=== PATIENT | male | born 1970 | race Caucasian/White ===

== ENCOUNTER 2016-10-26 10:53 | Outpatient (CLI) | payer OTHER | END 2016-10-26 10:54 | disposition home or self-care (01) | DX: G47.30 Sleep apnea, unspecified (principal); G47.10 Hypersomnia, unspecified; G47.8 Other sleep disorders ==

== ENCOUNTER 2016-11-06 12:30 | Outpatient (CLI) | payer OTHER | END 2016-11-06 12:31 | disposition home or self-care (01) | DX: N64.4 Mastodynia (principal) ==

== ENCOUNTER 2016-12-30 09:48 | Outpatient (CLI) | payer OTHER | END 2016-12-30 09:49 | disposition home or self-care (01) | DX: G47.33 Obstructive sleep apnea (adult) (pediatric) (principal) ==

== ENCOUNTER 2017-03-22 13:14 | Outpatient (CLI) | payer OTHER | END 2017-03-22 13:15 | disposition home or self-care (01) | LOC: SC 13:14 | PROVIDERS: ATTEND Nurse Practitioner Family | DX: G47.33 Obstructive sleep apnea (adult) (pediatric) (principal) | CPT/HCPCS: 99212; 99214 ==

== ENCOUNTER 2017-05-17 15:12 | Outpatient (CLI) | payer OTHER | END 2017-05-17 15:13 | disposition home or self-care (01) | LOC: SC 15:12 | PROVIDERS: ATTEND Nurse Practitioner Family | DX: G47.33 Obstructive sleep apnea (adult) (pediatric) (principal) | CPT/HCPCS: 99212; 99214 ==

== ENCOUNTER 2021-12-16 12:12 | Outpatient (CLI) | payer OTHER ==
--- NOTE | 2021-12-16 17:32 | CT Report ---
PROCEDURE: Low Dose Lung Cancer Screen INDICATIONS: CURRENT SMOKER TECHNIQUE: Noncontrast 1mm axial images were acquired from the pulmonary apices to the posterior costophrenic an gles. Axial 5 mm soft tissue kernel reconstructions were performed as well as 8 mm axial MIP and cor onal and sagittal 5 mm reformations. For radiation dose reduction, the following was used: automate d exposure control, adjustment of mA and/or kV according to patient size. COMPARISON: None. FINDINGS: Image quality: Excellent. Lungs and pleura: 3 mm nodule in the left lower lobe series 6 image 80. 6 mm nodule in the right low er lobe series 6 image 86 4 mm nodule left upper lobe series 6 image 50 No acute air space opacities. No pleural effusions or pneumothorax. Central and peripheral airways are patent and normal in boris ryan. Mediastinum: Heart size is normal. No pericardial effusion. No mediastinal adenopathy by size crit eria. Thoracic aorta and central pulmonary arteries are normal in size. Esophagus is normal in boris [place]yan. No hiatal hernia. The coronary arteries have atherosclerotic calcifications. Bones and chest wall: No suspicious bony lesions. No vertebral body compression fractures. No axil luis or supraclavicular adenopathy by size criteria. The thyroid is normal in size. Abdomen: Visualized upper abdominal solid organs and bowel loops appear normal in the absence of con trast. IMPRESSION: 3 mm left lower lobe nodule, 6 mm right lower lobe nodule, and 4 mm left upper lobe nodu le on baseline exam. LUNG-RADS 3: Probably benign; recommend 6 month follow-up CT. Reviewed by: Blayne Guerin on 12/16/2021 5:31 PM PDT Approved by: Blayne Guerin on 12/16/2021 5:31 PM PDT Station ID: [id number]
== END 2021-12-16 12:13 | disposition home or self-care (01) ==
LOC: DI 12:12
PROVIDERS: ATTEND Registered Nurse
DX: Z12.2 Encounter for screening for malignant neoplasm of respiratory organs (principal); F17.210 Nicotine dependence, cigarettes, uncomplicated; R91.8 Other nonspecific abnormal finding of lung field

== ENCOUNTER 2022-06-13 11:49 | Outpatient (CLI) | payer OTHER ==
--- NOTE | 2022-06-13 18:45 | CT Report ---
PROCEDURE: CHEST WO INDICATIONS: PULMONARY NODULE TECHNIQUE: Noncontrast 1mm axial images were acquired from the pulmonary apices to the posterior costophrenic an gles. Axial 5 mm soft tissue kernel reconstructions were performed as well as 8 mm axial MIP and cor onal and sagittal 5 mm reformations. For radiation dose reduction, the following was used: automate d exposure control, adjustment of mA and/or kV according to patient size. COMPARISON: 02/15/2022 FINDINGS: Image quality: Excellent. Lungs and pleura: Pulmonary nodules are seen: Left upper lobe, series 4 image 110 5 mm, stable Left lower lobe, series 4 image 160, 4 mm, stable Right lower lobe laterally, series 4 image 167, 6 mm, stable No acute air space opacities. No pleural effusions or pneumothorax. Central and peripheral airways are patent and normal in caliber. Mediastinum: Heart size is normal. No pericardial effusion. No mediastinal adenopathy by size crit eria. Thoracic aorta and central pulmonary arteries are normal in size. Esophagus is normal in [place]is ryan. No hiatal hernia. Bones and chest wall: No suspicious bony lesions. No vertebral body compression fractures. Age-appr opriate degenerative changes are seen. There is accentuated thoracic kyphosis. No axillary or supr aclavicular adenopathy by size criteria. The thyroid is normal in size and there are no incidental f indings. Abdomen: Visualized upper abdominal solid organs and bowel loops appear normal in the absence of con trast. IMPRESSION: Stable pulmonary nodules are seen, with the largest measuring up to [address] follow-up in one year. Reviewed by: Adolfo Luevano MD on 06/13/2022 5:44 PM JIMBO Approved by: Adolfo Luevano MD on 06/13/2022 5:44 PM JIMBO Station ID: [id number]
== END 2022-06-13 11:50 | disposition home or self-care (01) ==
LOC: DI 11:49
PROVIDERS: ATTEND Registered Nurse
DX: R91.8 Other nonspecific abnormal finding of lung field (principal)

== ENCOUNTER 2022-11-29 12:48 | Outpatient (CLI) | payer OTHER ==
--- NOTE | 2022-11-29 17:00 | CT Report ---
PROCEDURE: Low Dose Lung Cancer Screen INDICATIONS: NICOTINE DEPENDENCE TECHNIQUE: Noncontrast low-dose axial images were acquired from the pulmonary apices to the posterior costophren ic angles. Multiplanar MIP reformats were then reconstructed. For radiation dose reduction, the follo wing was used: automated exposure control, adjustment of mA and/or kV according to patient size. COMPARISON: None. FINDINGS: Image quality: Excellent. Lungs and pleura: 3 mm nodule in the left lower lobe series 4 image 155, unchanged. 3 mm nodule in t he right lower lobe series 4 image 170, unchanged. 3 mm nodule in the left upper lobe series 4 image 91, unchanged. Mediastinum: Heart size is normal. The coronary arteries have atherosclerotic calcifications. No p ericardial effusion. No mediastinal adenopathy by size criteria. Thoracic aorta and central pulmona ry arteries are normal in size. Esophagus is normal in caliber. No hiatal hernia. Bones and chest wall: No suspicious bony lesions. No vertebral body compression fractures. No axil luis or supraclavicular adenopathy by size criteria. The thyroid is normal in size and there are no incidental findings. Abdomen: Visualized upper abdomen solid organs and bowel loops appear normal in the absence of contr ast. IMPRESSION: 1. Stable pulmonary nodules. 2. Coronary artery disease. Lung RADS 1. No nodules or definitely benign nodules. Continue annual screening with low-dose chest C T. Reviewed by: Blayne Guerin on 11/29/2022 3:58 PM AKLAYA Approved by: Blayne Guerin on 11/29/2022 3:58 PM AKDT Station ID: [id number]
== END 2022-11-29 12:49 | disposition home or self-care (01) ==
LOC: DI 12:48
PROVIDERS: ATTEND Registered Nurse
DX: Z12.2 Encounter for screening for malignant neoplasm of respiratory organs (principal); R91.8 Other nonspecific abnormal finding of lung field; I25.10 Atherosclerotic heart disease of native coronary artery without angina pectoris; F17.200 Nicotine dependence, unspecified, uncomplicated

== ENCOUNTER 2023-12-17 13:25 | Outpatient (CLI) | payer OTHER ==
--- NOTE | 2023-12-18 18:44 | CT Report ---
PROCEDURE: Lung Cancer Screen INDICATIONS: EX SMOKER TECHNIQUE: A CT scan of the chest was performed. Intravenous contrast media was not administered. Images were re corded and evaluated at appropriate window settings. Reformats: axial MIP of the chest, coronal and s agittal. For radiation dose reduction, the following was used: automated exposure control, adjustment of mA and/or kV according to patient size. COMPARISON: CT chest, 11/29/2022. FINDINGS: Image quality: Excellent. Lungs and pleura: Small lung nodules are stable. -5 mm; subsolid; right lower lobe; series 4 image 56. -3 mm; subsolid; right middle lobe; series 4 image 45. -5 mm; solid; lingula; series 4 image 52. There are subpleural scars in the lingula. No pleural effusions. No pneumothorax. Mediastinum: Heart size is normal. No pericardial effusion. There is moderate coronary atheroscleroti c calcifications. No large vessel abnormality. No mediastinal adenopathy by size criteria. Small hia ander hernia. Chest wall and lower neck: Thyroid is unremarkable. No axillary or supraclavicular adenopathy by size . Bones: No aggressive osseous abnormality. Upper Abdomen: Unremarkable. IMPRESSION: Stable lung nodules. Lung RADS: 2 - Benign. Recommendation: Continue annual screening in 12 Months with LDCT Reviewed by: Christian Carlson MD on 12/18/2023 6:43 PM PDT Approved by: Christian Carlson MD on 12/18/2023 6:43 PM PDT Station ID: [id number]
== END 2023-12-17 13:26 | disposition home or self-care (01) ==
LOC: DI 13:25
PROVIDERS: ATTEND Registered Nurse
DX: Z12.2 Encounter for screening for malignant neoplasm of respiratory organs (principal); R91.8 Other nonspecific abnormal finding of lung field; F17.200 Nicotine dependence, unspecified, uncomplicated